=== PATIENT | male | born 1985 | race Caucasian/White ===

== ENCOUNTER 2023-09-17 12:34 | Inpatient (IN) | payer SELFPAY ==
[~2023-09-17] VITALS: Ht 182.9 cm; Wt 83.9 kg
[2023-09-17 12:38] VITALS: O2SAT 100
[2023-09-17 13:28] LABS: BASOPHILS % 0.3 % (0.0-2.0); DIFFERENTIAL COMMENT 0; EOSINOPHILS % 0.8 % (0.0-5.0); HEMATOCRIT. 41.4 % (42.0-52.0); HEMOGLOBIN. 13.6 g/dL (14.0-18.0); LYMPHOCYTES % 29.4 % (20.0-50.0); MEAN CORPUSCULAR HEMOGLOBIN 35.3 pg (28.0-32.0); MEAN CORPUSCULAR HGB CONC 32.9 g/dL (31.0-37.0); MEAN CORPUSCULAR VOLUME 107.1 fL (80.0-94.0); MEAN PLATELET VOLUME 7.4 fl (7.4-10.4); MONOCYTES % 5.7 % (2.0-8.0); NEUTROPHILS % 63.8 % (40.0-76.0); PLATELET 318 x1000/uL (130-400); RED BLOOD CELL COUNT 3.87 mill/uL (4.7-6.1); RED CELL DISTRIBUTION WIDTH 16.9 % (11.6-14.6); WHITE BLOOD COUNT 11.7 x1000/uL (4.5-11.0)
[2023-09-17] MEDS: SODIUM CHLORIDE 0.9% 1,000 ML IV ONE (13:30)
[2023-09-17 13:36] LABS: CHLORIDE 112 mEq/L (98-107); POTASSIUM 3.3 mEq/L (3.5-5.1); SODIUM 148 mEq/L (136-145)
[2023-09-17 13:37] LABS: CARBON DIOXIDE 25 mEq/L (21-32)
[2023-09-17 13:42] LABS: CREATININE 0.8 mg/dL (0.6-1.3); GLUCOSE 66 mg/dL (70-105); TROPONIN I HIGH SENSITIVITY 8 ng/L (3.0-53)
[2023-09-17 13:43] LABS: UREA NITROGEN BLOOD 8 mg/dL (9-23)
[2023-09-17 13:44] LABS: ALANINE AMINOTRANSFERASE 30 IU/L (10-49)
[2023-09-17 13:45] LABS: ACETAMINOPHEN < 2 ug/mL (10-30); ALBUMIN 4.6 g/dL (3.2-4.8); ASPARTATE AMINOTRANSFERASE 32 IU/L (<34); BILIRUBIN TOTAL 0.2 mg/dL (0.1-1.0); PROTEIN TOTAL 7.5 g/dL (6.0-8.3)
[2023-09-17 14:04] LABS: ETHANOL BLOOD 546 mg/dL (<10)
[2023-09-17] MEDS: DEXTROSE 50% WATER 50ML SYRINGE IV ONE (14:42)
[2023-09-17] MEDS ORDERED: POTASSIUM CHLORIDE 20MEQ TABLET SR PO ONE (14:45)
[2023-09-17] MEDS: SODIUM CHLORIDE 0.9% 1000ML BAG (SEPSIS BOLUS) IV ONE (17:39)
[2023-09-17] MEDS: PIPERACILLIN/TAZO 3.375G/50ML 50 ML IV ONE (17:41)
[2023-09-17] MEDS: POTASSIUM CHLORIDE 20MEQ TABLET SR PO NR (18:10)
[2023-09-17 18:12] LABS: LACTIC ACID 2.4 mmol/L (0.4-2.0)
[2023-09-17] MEDS: VANCOMYCIN 1G PREMIX 200 ML IV ONE (18:12)
[2023-09-17] MEDS ORDERED: LORAZEPAM 4MG/ML INJ IV PRN (23:15)
[2023-09-18] VITALS (7 sets, daily range): BP systolic 133–163; BP diastolic 82–100; PULSE 76–96; RESP 16–20; TEMP 97.3–98.8
[2023-09-18] MEDS: FOLIC ACID 1 MG, THIAMINE HCL 100 MG, MVI, ADULT NO.1 10 ML in DEXTROSE 5% WATER 1,000 ML IV ONE (01:13)
[2023-09-18] MEDS: LORAZEPAM 2MG/ML INJ IV PRN (01:32)
[2023-09-18] MEDS: BLOOD SUGAR DIAGNOSTIC STRIP TEST SCH (05:24)
[2023-09-18 08:37] LABS: CHLORIDE 109 mEq/L (98-107); POTASSIUM 3.6 mEq/L (3.5-5.1); SODIUM 141 mEq/L (136-145)
[2023-09-18 08:43] LABS: CREATININE 0.7 mg/dL (0.6-1.3); GLUCOSE 96 mg/dL (70-105)
[2023-09-18 08:50] LABS: CARBON DIOXIDE 23 mEq/L (21-32)
[2023-09-18 08:51] LABS: CALCIUM 8.5 mg/dL (8.7-10.4)
[2023-09-18 08:56] LABS: UREA NITROGEN BLOOD 6 mg/dL (9-23)
[2023-09-18] MEDS: ACETAMINOPHEN 325MG TABLET PO PRN (11:52)
[2023-09-18] MEDS: MAGNESIUM 2 G PREMIX 50 ML IV NR (15:08)
[2023-09-18] MEDS: POTASSIUM PHOSPHATE 20 MMOL in DEXT 5% WATER 243.3333 ML IV NR (15:08)
[2023-09-18] MEDS: HYDRALAZINE 20MG/ML VIAL IV PRN (20:23)
[2023-09-19] VITALS: BP 141/92; PULSE 89; RESP 16; TEMP 97.7
[2023-09-19 04:00] VITALS: BP 146/93; PULSE 67; RESP 18; TEMP 97.6
[2023-09-19 08:10] VITALS: BP 142/82; PULSE 70; RESP 18; TEMP 97.8
[2023-09-19] MEDS: THIAMINE HCL 100MG TABLET PO SCH (08:30)
[2023-09-19] MEDS: FOLIC ACID 1MG TABLET PO SCH (08:31)
[2023-09-19] MEDS: MULTIVITAMINS,THER W-MINERALS TABLET PO SCH (08:31)
[2023-09-19 12:00] VITALS: BP 152/85; PULSE 79; RESP 18; TEMP 98.1
== END 2023-09-19 14:40 | disposition left against medical advice (07) | DRG 52 ==
LOC: ER 12:34 → EDBD 12:34 → EDBEDREQSVC 16:41 → EDBEDREQTM 16:41 → EDBEDREQ 16:41 → EDBEDREQTM 22:15 → EDBEDREQSVC 22:15 → 8WST 09-18 00:53
PROVIDERS: ADMIT Hospitalist; ATTEND Hospitalist
DX: G92.8 Other toxic encephalopathy (principal); E87.0 Hyperosmolality and hypernatremia; E87.8 Other disorders of electrolyte and fluid balance, not elsewhere classified; F10.129 Alcohol abuse with intoxication, unspecified; Z53.29 Procedure and treatment not carried out because of patient's decision for other reasons; E87.6 Hypokalemia; E16.2 Hypoglycemia, unspecified; Y90.8 Blood alcohol level of 240 mg/100 ml or more; Z82.49 Family history of ischemic heart disease and other diseases of the circulatory system
CPT/HCPCS: 36415; 71045; 80048; 80053; 80061; 80307; 80320; 80329; 82962; 83036; 83605; 83735; 84100; 84484; 85025; 93005; 99291; J0360; J2060; J2543; J3370; J3411; J3475; J3490; J7030; J7060; J7070; G0480